=== PATIENT | female | born 1955 | race Two or more races ===

== ENCOUNTER 2018-04-25 13:25 | Outpatient (CLI) | payer OTHER ==
--- NOTE | 2018-04-26 11:45 | XRAY Report ---
Reason: STRAIN OF MUSCLE FASCIA AND TENDON OF THE POSTERIO Procedure Date: 04/25/2018 Accession Number: [id number] / [id number] Procedure: XR - Hip w/Pelvis 2-3V LT CPT Code: FULL RESULT: EXAM: LEFT HIP AND PELVIS RADIOGRAPHY EXAM DATE: 04/25/2018 02:02 PM. HISTORY: Strain of muscle fascia and tendon of the posterior thigh. COMPARISONS: None. TECHNIQUE: 1 view of the pelvis and 1 view of the hip. FINDINGS: Bones: There is the suggestion of a lytic lesion along the margin of the lateral process of L5 on the right. This finding is incompletely evaluated. No fracture is identified. Joints: The bilateral hip joints are mildly narrowed. The pubis symphysis, and sacroiliac joints are preserved. Soft Tissues: Normal. No soft tissue swelling. IMPRESSION: Mild degenerative hip disease. No fracture or dislocation is identified. Correlate questionable lytic lesion in the lateral aspect of L5 on the right seen on one view only to possible history of malignancy. For further workup, initial dedicated plain radiographs of the lower lumbar spine in at least 2 projections would be recommended to confirm the finding. RADIA
== END 2018-04-25 13:26 | disposition home or self-care (01) ==
LOC: DI 13:25
PROVIDERS: ATTEND Registered Nurse
DX: M16.0 Bilateral primary osteoarthritis of hip (principal)

== ENCOUNTER 2018-04-28 11:12 | Outpatient (CLI) | payer OTHER ==
--- NOTE | 2018-04-28 13:56 | XRAY Report ---
Reason: NEOPLASM OF UNCERTAIN BEHAVIOR OF BONE Procedure Date: 04/28/2018 Accession Number: [id number] / [id number] Procedure: XR - Lumbar Spine 2 View CPT Code: FULL RESULT: EXAM: LUMBOSACRAL SPINE RADIOGRAPHY EXAM DATE: 04/28/2018 11:30 AM. CLINICAL HISTORY: Fall with injury to the posterior left thigh. COMPARISONS: None. TECHNIQUE: 3 views. FINDINGS: Alignment: Minimal apparent levoconvex scoliosis centered about L2 may be positional. No listhesis. Bones: Five [id number] lumbar vertebral bodies are present. No fractures or bone lesions. Disks: Disk space heights are generally preserved with mild marginal osteophytosis at L2-L3. Facets: Mild to moderate facet arthropathy of the lower lumbar spine, predominantly at L5. Sacroiliac Joints: Unremarkable. Soft Tissues: Normal. The visualized bowel gas pattern is normal. IMPRESSION: Mild degenerative changes as described. RADIA
== END 2018-04-28 11:13 | disposition home or self-care (01) ==
LOC: DI 11:12
PROVIDERS: ATTEND Registered Nurse
DX: D48.0 Neoplasm of uncertain behavior of bone and articular cartilage (principal); M41.86 Other forms of scoliosis, lumbar region; M25.78 Osteophyte, vertebrae
CPT/HCPCS: 72100

== ENCOUNTER 2018-05-26 07:58 | Outpatient (CLI) | payer OTHER ==
--- NOTE | 2018-06-09 08:57 | Mammography Report ---
Reason: ESTABLISH CARE OR GET AQUAINTED VISIT Procedure Date: 05/26/2018 Accession Number: [id number] / [id number] Procedure: BEHZAD - Screening Mammo Impl w/[place] CPT Code: FULL RESULT: EXAM: Screening Mammo Impl w/[place] DATE: 05/26/2018 8:40 AM CLINICAL HISTORY: Screening encounter. Family history of breast cancer in a maternal aunt at the age of 78. History of bilateral saline breast implants in 2002. TECHNIQUE: Bilateral CC and MLO views were obtained. All views were obtained in standard fashion and implant displaced fashion. A laterally exaggerated CC view of the left breast was also obtained. COMPARISON: None were made available. FINDINGS: The breasts demonstrate scattered fibroglandular densities bilaterally. Bilateral saline breast implants appear intact. No suspicious masses, clustered microcalcifications, or regions of architectural distortion are identified. IMPRESSION: Benign findings RECOMMENDATION: Routine annual screening unless otherwise clinically indicated. BIRADS CATEGORY 2: Benign findings STANDARD QUALIFYING STATEMENTS: 1. This examination was not reviewed with the aid of Computer-Aided Detection (CAD). 2. A negative or benign imaging report should not preclude biopsy if clinically suspicious findings are present. 3. Dense breasts may obscure an underlying neoplasm. 4. This examination was reviewed with the aid of 3D breast imaging (tomosynthesis).
== END 2018-05-26 07:59 | disposition home or self-care (01) ==
LOC: DI 07:58
PROVIDERS: ATTEND Registered Nurse
DX: Z71.89 Other specified counseling (principal); Z80.3 Family history of malignant neoplasm of breast; Z98.82 Breast implant status
CPT/HCPCS: 77063; 77067

== ENCOUNTER 2018-05-26 08:00 | Outpatient (CLI) | payer OTHER ==
--- NOTE | 2018-05-27 10:03 | DEXA Report ---
Reason: ESTABLISH CARE OR GET AQUAINTED VISIT Procedure Date: 05/26/2018 Accession Number: [id number] / [id number] Procedure: DEX - Dexa Spine and/or Hip CPT Code: FULL RESULT: EXAM: Dexa Spine and/or Hip DATE: 05/26/2018 9:10 AM CLINICAL HISTORY: ESTABLISH CARE OR GET AQUAINTED VISIT TECHNIQUE: Dual energy x-ray absorptiometry (DXA) was performed on a [employer] System. Regions measured are the AP Spine, femoral neck, and if needed forearm. COMPARISON: None. In accordance with the International Society for Clinical Densitometry (ISCD) guidelines, data from previous exams may be reanalyzed using current recommendations and techniques. This is done to allow a more accurate basis for comparison with the current study. FINDINGS: The data for the lumbar spine is as follows: BMD (g/cm/cm) T-SCORE Z-SCORE REGION L1 0.867 -2.2 -1.4 L2 0.975 -1.9 -1.1 L3 1.026 -1.5 -0.6 L4 1.050 -1.3 -0.4 TOTAL 0.984 -1.6 -0.8 NOTE: All evaluable vertebrae are used for classification The data for the hip is as follows: BMD (g/cm/cm) T-SCORE Z-SCORE REGION Neck 0.850 -1.4 -0.4 TOTAL 0.907 -0.8 -0.2 NOTE: The femoral neck or total proximal femur, whichever is lowest, is used for classification. IMPRESSION: THE WHO CLASSIFICATION BASED ON THE INTERNATIONAL REFERENCE STANDARD IS OSTEOPENIA. THE FRACTURE RISK IS INCREASED. RECOMMENDATION: Patients with diagnosis of osteoporosis or osteopenia should have regular bone mineral density assessment. For those eligible for Medicare, routine testing is allowed once every 2 years. Testing frequency can be increased for patients who have rapidly progressing disease or for those who are receiving medical therapy to restore bone mass. COMMENT: World Health Organization (WHO) definitions for osteoporosis and osteopenia: NORMAL BMD: T-score at -1.0 or higher, fracture risk is low OSTEOPENIA BMD: T-score between -1.0 and -2.5, fracture risk is increased. OSTEOPOROSIS BMD: T-score at -2.5 or lower, fracture risk is high. National Osteoporosis Foundation recommends: 1. Obtain adequate dietary calcium (at least 1200 mg per day) and vitamin D (400-800 international units per day). 2. Participate, as appropriate, in regular weightbearing and muscle-strengthening exercise. 3. Avoid tobacco use and reduce alcohol and caffeine intake. 4. For more detailed information see the website at www.NOF.org.
== END 2018-05-26 08:01 | disposition home or self-care (01) ==
LOC: DI 08:00
PROVIDERS: ATTEND Registered Nurse
DX: M85.89 Other specified disorders of bone density and structure, multiple sites (principal)
CPT/HCPCS: 77080